=== PATIENT | male | born 2000 | race Hispanic/Latino ===

== ENCOUNTER → 2023-07-10 15:03 | Outpatient (CLI) | payer OTHER, SELFPAY ==
--- NOTE | 2023-07-10 | DI.US.S_ITS ---
PROCEDURE: US EXTREMITY NONVASC LOWER LT INDICATIONS: PAIN IN RIGHT KNEE / EVAL FOR CASTILLO'S CYST TECHNIQUE: Real-time scanning was performed of the left popliteal fossa, with image documentation. COMPARISON: None. FINDINGS: Focused ultrasound examination of left popliteal fossa shows no soft tissue mass or fluid collection. IMPRESSION: No popliteal cyst is seen. No soft tissue mass is noted. Dictated by: Steven Chowdhury M.D. on 07/10/2023 at 16:53 Approved by: Steven Chowdhury M.D. on 07/10/2023 at 16:53
== END ==
PROVIDERS: PCP Family Medicine; Referring Provider Family Medicine; Visit Provider Family Medicine
DX: M25.561 Pain in right knee (principal)
CPT/HCPCS: 76882